=== PATIENT | female | born 1945 | race Caucasian/White ===

== ENCOUNTER 2017-09-26 09:39 | Day surgery (SDC) | payer MEDICARE ==
[2017-09-26] MEDS ORDERED: Lidocaine 1% PF 5 ML VIAL ONE ×2 (11:09→11:42)
[2017-09-26 13:02] VITALS: BP 167/86; TEMP 97.8
--- NOTE | 2017-09-26 13:38 | ULT ---
THYROID ULTRASOUND: Indication: Thyroid nodules. Comparison: None. FINDINGS: The right lobe is enlarged and very heterogenous. Right lobe measurements in the sagittal plane are r ecorded at 4.5 x 3.4 cm. There appear to be multiple nodules in this heterogeneous lobe which are dif ficult to delineate. A more dominant solid nodule in the inferior posterior right lobe measures up to 1.5 cm. There are other heterogeneous nodules seen throughout this lobe which are not well delineate d. There is a hypoechoic nodule in the isthmus measuring approximately 1.0 x 0.7 cm. The left lobe is also enlarged and heterogenous with left lobe measurements in the sagittal plane rec orded at 4.7 x 2.7 cm. There are multiple nodules in the left lobe as well. A more prominent heteroge neous nodule in the inferior left lobe measures 2.0 x 2.5 cm. IMPRESSION: Multinodular thyroid gland. More dominant nodules are seen in the inferior aspect of both lobes as de scribed above. Patient is schedule for ultrasound guided fine needle aspiration of the dominant nodul es. See separate biopsy dictation. POS: [facility]
--- NOTE | 2017-09-26 13:42 | ULT ---
ULTRASOUND GUIDED FINE NEEDLE ASPIRATION TO DOMINANT NODULES OF BOTH LOBES OF THYROID: FINDINGS: A dominant nodule in the inferior right lobe is sampled with FNA, under local anesthesia, using a 25 gauge needle. Four FNAs were obtained through this nodule with ultrasound confirmation with each dwight ple. Ultrasound guided FNA of a dominant nodule in the inferior left lobe was also performed. Four 25 gau ge FNA samples were obtained through this dominant nodule with ultrasound confirmation with each spec imen. PROCEDURE NOTE: The dominant nodule in the inferior aspects of both branches was chosen FNA. The overlying was prepp ed and draped in a sterile manner. Local anesthesia was administered under ultrasound guidance with Lidocaine and bicarbonate. The right lobe is sampled first. A 25 gauge needle was introduced into the dominant nodule of the in ferior right lobe, under ultrasound guidance. An FNA sample was obtained. This was repeated x4. Sa mples were given to pathology at the bedside. The dominant nodule in the inferior left lobe was then sampled with a 25 gauge FNA x4, in a similar f ashion. Post procedure ultrasound showed no hematoma. The patient tolerated the procedure well, and there were no problems or complications. POS: [facility]
== END 2017-09-26 12:05 | disposition home or self-care (01) ==
LOC: ULT 09:39
PROVIDERS: ATTEND Specialist
PROC: 0GJK3ZZ Inspection of Thyroid Gland, Percutaneous Approach (ICD-10-PCS; principal; 2017-09-26)
DX: E04.2 Nontoxic multinodular goiter (principal); E05.20 Thyrotoxicosis with toxic multinodular goiter without thyrotoxic crisis or storm; F32.9 Major depressive disorder, single episode, unspecified; I10 Essential (primary) hypertension; M81.0 Age-related osteoporosis without current pathological fracture; M19.90 Unspecified osteoarthritis, unspecified site; M47.812 Spondylosis without myelopathy or radiculopathy, cervical region; M85.80 Other specified disorders of bone density and structure, unspecified site; Z86.010 Personal history of colon polyps; Z87.891 Personal history of nicotine dependence; Z79.82 Long term (current) use of aspirin; Z79.83 Long term (current) use of bisphosphonates; Z79.51 Long term (current) use of inhaled steroids; Z79.899 Other long term (current) drug therapy; Z91.040 Latex allergy status; Z96.652 Presence of left artificial knee joint; Z90.710 Acquired absence of both cervix and uterus; Z89.422 Acquired absence of other left toe(s); Z98.890 Other specified postprocedural states
CPT/HCPCS: 10022; 76536; 76942; 88173; 88305; J2001